=== PATIENT | male | born 1940 | race African-American/Black ===

== ENCOUNTER → 2023-08-03 09:18 | Outpatient (REF) | payer OTHER, SELFPAY ==
[2023-08-03 10:22] LABS: ALT (SGPT) 23 U/L (0-50); AST (SGOT) 29 U/L (17-59); Albumin 4.4 g/dl (3.5-5.0); Alkaline Phosphatase 87 U/L (38-126); Blood Urea Nitrogen 30 mg/dl (9-20); Calcium 9.4 mg/dl (8.4-10.2); Carbon Dioxide 29 mmol/L (22-30); Chloride 108 mmol/L (98-107); Glucose 126 mg/dl (70-99); Potassium 5.2 mmol/L (3.5-5.1); Sodium 140 mmol/L (135-145); Total Bilirubin 0.5 mg/dl (0.2-1.3); Total Protein 7.8 g/dl (6.3-8.2); eGFR 39.51
[2023-08-03 10:54] LABS: Microalbumin, Random Urine 15.7 mg/dl (0.6-1.7); Microalbumin/creatinine Ratio 168.3 mg/g
== END ==
LOC: REG 09:18
PROVIDERS: ATTENDING PHYSICIAN Nurse Practitioner Adult Health; REFERRING PHYSICIAN Specialist
DX: E11.9 Type 2 diabetes mellitus without complications (principal); N18.32 Chronic kidney disease, stage 3b; R80.9 Proteinuria, unspecified; E87.5 Hyperkalemia
CPT/HCPCS: 36415; 80048; 80053; 82043; 82570; 83036

== ENCOUNTER → 2023-08-26 09:30 | Outpatient (REF) | payer OTHER, SELFPAY ==
[2023-08-26 11:09] LABS: Blood Urea Nitrogen 36 mg/dl (9-20); Calcium 9.6 mg/dl (8.4-10.2); Carbon Dioxide 29 mmol/L (22-30); Chloride 103 mmol/L (98-107); Glucose 139 mg/dl (70-99); Potassium 4.6 mmol/L (3.5-5.1); Sodium 137 mmol/L (135-145); eGFR 34.57
== END ==
LOC: CLINIC 09:30
PROVIDERS: ATTENDING PHYSICIAN Nurse Practitioner Adult Health
DX: I10 Essential (primary) hypertension (principal)
CPT/HCPCS: 36415; 80048

== ENCOUNTER → 2023-09-17 08:37 | Outpatient (REF) | payer OTHER, SELFPAY ==
[2023-09-17 11:26] LABS: Blood Urea Nitrogen 41 mg/dl (9-20); Calcium 10.1 mg/dl (8.4-10.2); Carbon Dioxide 30 mmol/L (22-30); Chloride 104 mmol/L (98-107); Glucose 112 mg/dl (70-99); Potassium 5.1 mmol/L (3.5-5.1); Sodium 139 mmol/L (135-145); eGFR 34.57
== END ==
LOC: CLINIC 08:37
PROVIDERS: ATTENDING PHYSICIAN Nurse Practitioner Adult Health
DX: N18.32 Chronic kidney disease, stage 3b (principal)
CPT/HCPCS: 36415; 80048

== ENCOUNTER → 2023-10-02 08:36 | Outpatient (REF) | payer OTHER, SELFPAY ==
[2023-10-02 12:48] LABS: Blood Urea Nitrogen 26 mg/dl (9-20); Calcium 9.7 mg/dl (8.4-10.2); Carbon Dioxide 29 mmol/L (22-30); Chloride 105 mmol/L (98-107); Glucose 97 mg/dl (70-99); Potassium 5.1 mmol/L (3.5-5.1); Sodium 141 mmol/L (135-145); eGFR 42.49
== END ==
LOC: REG 08:36
PROVIDERS: ATTENDING PHYSICIAN Nurse Practitioner Adult Health
DX: I10 Essential (primary) hypertension (principal); N18.32 Chronic kidney disease, stage 3b
CPT/HCPCS: 36415; 80048

== ENCOUNTER → 2023-11-30 08:50 | Outpatient (REF) | payer OTHER, SELFPAY ==
[2023-11-30 09:56] LABS: Hematocrit 44.6 % (39.0-52.0); Hemoglobin 14.4 g/dL (13.0-18.0); Mean Corp Hgb Conc. 32.3 g/dL (33.0-37.0); Mean Corpuscular Hgb 26.9 pg (27.0-31.0); Mean Corpuscular Volume 83.4 fL (80.0-94.0); Platelet Count 159 10^3/uL (130-400); Red Blood Cell Count 5.35 10^6/uL (4.70-6.10); Red Cell Dist. Width 12.5 % (11.5-14.5); White Blood Cell Count 5.6 10^3/uL (4.8-10.8)
[2023-11-30 10:28] LABS: ALT (SGPT) 22 U/L (0-50); AST (SGOT) 36 U/L (17-59); Albumin 4.4 g/dl (3.5-5.0); Alkaline Phosphatase 83 U/L (38-126); Blood Urea Nitrogen 41 mg/dl (9-20); Calcium 9.8 mg/dl (8.4-10.2); Carbon Dioxide 26 mmol/L (22-30); Chloride 103 mmol/L (98-107); Glucose 85 mg/dl (70-99); Potassium 4.3 mmol/L (3.5-5.1); Sodium 140 mmol/L (135-145); Total Bilirubin 0.8 mg/dl (0.2-1.3); Total Protein 7.7 g/dl (6.3-8.2); eGFR 27.32
[2023-11-30 10:49] LABS: Glycohemoglobin (HgbA1c) 6.5 % (4.0-5.6)
== END ==
LOC: CLINIC 08:50
PROVIDERS: ATTENDING PHYSICIAN Nurse Practitioner Adult Health
DX: D64.9 Anemia, unspecified (principal); E11.9 Type 2 diabetes mellitus without complications
CPT/HCPCS: 36415; 80053; 83036; 85027

== ENCOUNTER → 2024-01-04 08:49 | Outpatient (REF) | payer OTHER, SELFPAY ==
[2024-01-04 11:10] LABS: Blood Urea Nitrogen 35 mg/dl (9-20); Carbon Dioxide 26 mmol/L (22-30); Chloride 103 mmol/L (98-107); Glucose 118 mg/dl (70-99); Sodium 139 mmol/L (135-145); eGFR 34.35
[2024-01-04 11:34] LABS: Microalbumin/creatinine Ratio 88.8 mg/g
== END ==
LOC: CLINIC 08:49
PROVIDERS: ATTENDING PHYSICIAN Nurse Practitioner Adult Health
DX: N18.32 Chronic kidney disease, stage 3b (principal)
CPT/HCPCS: 36415; 80048; 82043; 82570

== ENCOUNTER → 2024-02-05 09:30 | Outpatient (REF) | payer OTHER, SELFPAY ==
[2024-02-05 11:33] LABS: HDL Cholesterol 64 mg/dl; LDL Cholesterol, Calculated 51 mg/dl; Total Cholesterol 131 mg/dl (50-199); Triglyceride 83 mg/dl (10-149); Very Low Density Lipoprotein 16 mg/dl (0-30)
== END ==
LOC: REG 09:30
PROVIDERS: ATTENDING PHYSICIAN Nurse Practitioner Adult Health
DX: E11.9 Type 2 diabetes mellitus without complications (principal)
CPT/HCPCS: 36415; 80061

== ENCOUNTER → 2024-03-14 08:49 | Outpatient (REF) | payer OTHER, SELFPAY ==
[2024-03-14 10:41] LABS: Glycohemoglobin (HgbA1c) 6.5 % (4.0-5.6)
[2024-03-14 10:51] LABS: ALT (SGPT) 23 U/L (0-50); AST (SGOT) 30 U/L (17-59); Albumin 4.5 g/dl (3.5-5.0); Alkaline Phosphatase 81 U/L (38-126); Blood Urea Nitrogen 36 mg/dl (9-20); Calcium 9.7 mg/dl (8.4-10.2); Carbon Dioxide 28 mmol/L (22-30); Chloride 105 mmol/L (98-107); Glucose 106 mg/dl (70-99); HDL Cholesterol 75 mg/dl; LDL Cholesterol, Calculated 54 mg/dl; Potassium 5.5 mmol/L (3.5-5.1); Sodium 145 mmol/L (135-145); Total Bilirubin 0.6 mg/dl (0.2-1.3); Total Cholesterol 140 mg/dl (50-199); Total Protein 7.9 g/dl (6.3-8.2); Triglyceride 56 mg/dl (10-149); Very Low Density Lipoprotein 11 mg/dl (0-30); eGFR 36.66
== END ==
LOC: CLINIC 08:49
PROVIDERS: ATTENDING PHYSICIAN Nurse Practitioner Adult Health
DX: E11.9 Type 2 diabetes mellitus without complications (principal)
CPT/HCPCS: 36415; 80053; 80061; 83036

== ENCOUNTER → 2024-04-15 10:12 | Outpatient (REF) | payer OTHER, SELFPAY ==
[2024-04-15 12:52] LABS: Blood Urea Nitrogen 32 mg/dl (9-20); Calcium 9.4 mg/dl (8.4-10.2); Carbon Dioxide 29 mmol/L (22-30); Chloride 104 mmol/L (98-107); Glucose 115 mg/dl (70-99); Potassium 5.1 mmol/L (3.5-5.1); Sodium 145 mmol/L (135-145); eGFR 36.66
== END ==
LOC: CLINIC 10:12
PROVIDERS: ATTENDING PHYSICIAN Nurse Practitioner Adult Health
DX: E87.5 Hyperkalemia (principal)
CPT/HCPCS: 36415; 80048

== ENCOUNTER → 2024-06-15 10:03 | Outpatient (REF) | payer OTHER, SELFPAY ==
[2024-06-15 11:53] LABS: ALT (SGPT) 20 U/L (0-50); AST (SGOT) 28 U/L (17-59); Albumin 4.6 g/dl (3.5-5.0); Alkaline Phosphatase 82 U/L (38-126); Blood Urea Nitrogen 41 mg/dl (9-20); Calcium 9.2 mg/dl (8.4-10.2); Carbon Dioxide 30 mmol/L (22-30); Chloride 101 mmol/L (98-107); Glucose 129 mg/dl (70-99); Potassium 5.3 mmol/L (3.5-5.1); Sodium 140 mmol/L (135-145); Total Bilirubin 0.5 mg/dl (0.2-1.3); eGFR 36.66
[2024-06-15 12:05] LABS: Glycohemoglobin (HgbA1c) 7.4 % (4.0-5.6)
== END ==
LOC: CLINIC 10:03
PROVIDERS: ATTENDING PHYSICIAN Nurse Practitioner Adult Health
DX: E11.9 Type 2 diabetes mellitus without complications (principal)
CPT/HCPCS: 36415; 80053; 83036

== ENCOUNTER → 2024-07-22 09:25 | Outpatient (REF) | payer OTHER, SELFPAY ==
[2024-07-22 10:26] LABS: Hemoglobin 15.7 g/dL (13.0-18.0); Mean Corp Hgb Conc. 31.4 g/dL (33.0-37.0); Mean Corpuscular Hgb 26.7 pg (27.0-31.0); Mean Corpuscular Volume 85.2 fL (80.0-94.0); Platelet Count 165 10^3/uL (130-400); Red Blood Cell Count 5.87 10^6/uL (4.70-6.10); Red Cell Dist. Width 12.9 % (11.5-14.5); White Blood Cell Count 5.7 10^3/uL (4.8-10.8)
[2024-07-22 10:53] LABS: Microalbumin, Random Urine 9.5 mg/dl (0.6-1.7); Microalbumin/creatinine Ratio 128.4 mg/g
[2024-07-22 11:11] LABS: ALT (SGPT) 26 U/L (0-50); AST (SGOT) 26 U/L (17-59); Albumin 4.5 g/dl (3.5-5.0); Alkaline Phosphatase 90 U/L (38-126); Blood Urea Nitrogen 33 mg/dl (9-20); Calcium 9.6 mg/dl (8.4-10.2); Carbon Dioxide 27 mmol/L (22-30); Chloride 102 mmol/L (98-107); Glucose 135 mg/dl (70-99); Potassium 5.1 mmol/L (3.5-5.1); Sodium 139 mmol/L (135-145); Total Bilirubin 0.7 mg/dl (0.2-1.3); Total Protein 7.8 g/dl (6.3-8.2); eGFR 36.66
[2024-07-22 11:53] LABS: Glycohemoglobin (HgbA1c) 7.9 % (4.0-5.6)
== END ==
LOC: CLINIC 09:25
PROVIDERS: ATTENDING PHYSICIAN Nurse Practitioner Adult Health
DX: E11.9 Type 2 diabetes mellitus without complications (principal); R80.9 Proteinuria, unspecified; N18.32 Chronic kidney disease, stage 3b; D64.9 Anemia, unspecified
CPT/HCPCS: 36415; 80053; 82043; 82570; 83036; 85027

== ENCOUNTER → 2024-09-08 09:26 | Outpatient (REF) | payer OTHER, SELFPAY ==
[2024-09-08 11:26] LABS: Blood Urea Nitrogen 37 mg/dl (9-20); Calcium 10.1 mg/dl (8.4-10.2); Carbon Dioxide 27 mmol/L (22-30); Chloride 102 mmol/L (98-107); Glucose 150 mg/dl (70-99); Sodium 141 mmol/L (135-145)
== END ==
LOC: REG 09:26
PROVIDERS: ATTENDING PHYSICIAN Nurse Practitioner Adult Health
DX: E87.5 Hyperkalemia (principal)
CPT/HCPCS: 36415; 80048

== ENCOUNTER → 2024-12-08 09:55 | Outpatient (REF) | payer OTHER, SELFPAY ==
[2024-12-08 11:17] LABS: ALT (SGPT) 26 U/L (0-50); AST (SGOT) 26 U/L (17-59); Albumin 4.7 g/dl (3.5-5.0); Alkaline Phosphatase 132 U/L (38-126); Blood Urea Nitrogen 41 mg/dl (9-20); Calcium 9.8 mg/dl (8.4-10.2); Carbon Dioxide 27 mmol/L (22-30); Chloride 103 mmol/L (98-107); Glucose 117 mg/dl (70-99); Potassium 4.9 mmol/L (3.5-5.1); Sodium 140 mmol/L (135-145); Total Protein 8.6 g/dl (6.3-8.2); eGFR 28.63
[2024-12-08 11:44] LABS: Microalb - Urine Creatinine 217.200 mg/dl
[2024-12-08 11:48] LABS: Microalbumin, Random Urine 7.1 mg/dl (0.6-1.7)
[2024-12-08 12:10] LABS: Glycohemoglobin (HgbA1c) 9.6 % (4.0-5.6)
== END ==
LOC: REG 09:55
PROVIDERS: ATTENDING PHYSICIAN Nurse Practitioner Adult Health
DX: E11.9 Type 2 diabetes mellitus without complications (principal); N18.32 Chronic kidney disease, stage 3b; E87.5 Hyperkalemia; R80.9 Proteinuria, unspecified
CPT/HCPCS: 36415; 80053; 82043; 82570; 83036

== ENCOUNTER → 2025-01-30 09:07 | Outpatient (REF) | payer OTHER, SELFPAY ==
[2025-01-30 10:47] LABS: Blood Urea Nitrogen 40 mg/dl (9-20); Calcium 9.6 mg/dl (8.4-10.2); Carbon Dioxide 29 mmol/L (22-30); Glucose 138 mg/dl (70-99); Potassium 5.6 mmol/L (3.5-5.1); Sodium 142 mmol/L (135-145); eGFR 34.14
[2025-01-30 10:53] LABS: Chloride 106 mmol/L (98-107)
[2025-01-30 11:46] LABS: Glycohemoglobin (HgbA1c) 8.4 % (4.0-5.6)
== END ==
LOC: CLINIC 09:07
PROVIDERS: ATTENDING PHYSICIAN Nurse Practitioner Adult Health
DX: E11.9 Type 2 diabetes mellitus without complications (principal); N18.32 Chronic kidney disease, stage 3b
CPT/HCPCS: 36415; 80048; 83036

== ENCOUNTER → 2025-03-24 10:32 | Outpatient (REF) | payer OTHER, SELFPAY ==
[2025-03-24 12:33] LABS: Blood Urea Nitrogen 48 mg/dl (9-20); Calcium 9.5 mg/dl (8.4-10.2); Carbon Dioxide 29 mmol/L (22-30); Chloride 103 mmol/L (98-107); Glucose 149 mg/dl (70-99); Potassium 5.1 mmol/L (3.5-5.1); Sodium 140 mmol/L (135-145); eGFR 28.63
== END ==
LOC: CLINIC 10:32
PROVIDERS: ATTENDING PHYSICIAN Nurse Practitioner Adult Health
DX: E87.5 Hyperkalemia (principal)
CPT/HCPCS: 36415; 80048

== ENCOUNTER → 2025-05-01 09:44 | Outpatient (REF) | payer OTHER, SELFPAY ==
[2025-05-01 11:57] LABS: Microalb - Urine Creatinine 98.600 mg/dl
[2025-05-01 12:01] LABS: Microalbumin, Random Urine 18.2 mg/dl (0.6-1.7)
[2025-05-01 12:13] LABS: Glycohemoglobin (HgbA1c) 8.2 % (4.0-5.9)
[2025-05-01 12:27] LABS: ALT (SGPT) 64 U/L (0-50); AST (SGOT) 43 U/L (17-59); Albumin 4.2 g/dl (3.5-5.0); Alkaline Phosphatase 368 U/L (38-126); Blood Urea Nitrogen 33 mg/dl (9-20); Calcium 9.2 mg/dl (8.4-10.2); Carbon Dioxide 29 mmol/L (22-30); Chloride 101 mmol/L (98-107); Glucose 151 mg/dl (70-99); HDL Cholesterol 45 mg/dl; LDL Cholesterol, Calculated 70 mg/dl; Potassium 5.0 mmol/L (3.5-5.1); Sodium 136 mmol/L (135-145); Total Protein 8.0 g/dl (6.3-8.2); Very Low Density Lipoprotein 16 mg/dl (0-30); eGFR 34.14
== END ==
LOC: CLINIC 09:44
PROVIDERS: ATTENDING PHYSICIAN Nurse Practitioner Adult Health
DX: E11.9 Type 2 diabetes mellitus without complications (principal); R80.9 Proteinuria, unspecified; N18.32 Chronic kidney disease, stage 3b
CPT/HCPCS: 36415; 80053; 80061; 82043; 82570; 83036

== ENCOUNTER → 2025-05-05 12:29 | Outpatient (REF) | payer OTHER, SELFPAY ==
[2025-05-05 13:42] LABS: ALT (SGPT) 69 U/L (0-50); AST (SGOT) 47 U/L (17-59); Albumin 4.3 g/dl (3.5-5.0); Alkaline Phosphatase 381 U/L (38-126); Calcium 9.8 mg/dl (8.4-10.2); GGTP 442 U/L (15-73); Total Protein 8.4 g/dl (6.3-8.2)
[2025-05-05 13:56] LABS: Vitamin D, 25-OH*** 20.1 ng/mL (30-80)
[2025-05-05 14:10] LABS: Hepatitis B Surface Antigen Negative (Negative)
[2025-05-05 14:29] LABS: Hepatitis C Antibody Negative (Negative)
== END ==
LOC: CLINIC 12:29
PROVIDERS: ATTENDING PHYSICIAN Nurse Practitioner Adult Health
DX: R74.8 Abnormal levels of other serum enzymes (principal)
CPT/HCPCS: 36415; 80076; 82306; 82977; 83970; 84443; 86038; 86704; 86706; 86803; 87340

== ENCOUNTER → 2025-05-10 09:19 | Outpatient (REF) | payer OTHER, SELFPAY | LOC: RAD 09:19 | PROVIDERS: ATTENDING PHYSICIAN Nurse Practitioner Adult Health | DX: R74.8 Abnormal levels of other serum enzymes (principal) | CPT/HCPCS: 76700 ==

== ENCOUNTER → 2025-05-12 12:17 | Outpatient (REF) | payer OTHER, SELFPAY ==
[2025-05-12 18:21] LABS: ALT (SGPT) 54 U/L (0-50); AST (SGOT) 39 U/L (17-59); Albumin 4.2 g/dl (3.5-5.0); Alkaline Phosphatase 397 U/L (38-126); Iron 49 ug/dl (49-181); Total Protein 8.0 g/dl (6.3-8.2)
[2025-05-12 18:31] LABS: Total Iron Binding Capacity 273 ug/dl (261-462)
[2025-05-12 18:39] LABS: GGTP 437 U/L (15-73)
[2025-05-12 18:40] LABS: Ferritin 265.0 ng/ml (17.9-464.0)
== END ==
LOC: CLINIC 12:17
PROVIDERS: ATTENDING PHYSICIAN Internal Medicine Gastroenterology; FAMILY PHYSICIAN Nurse Practitioner Adult Health
DX: R79.89 Other specified abnormal findings of blood chemistry (principal)
CPT/HCPCS: 36415; 80076; 82103; 82104; 82390; 82728; 82977; 83540; 83550; 86015; 86381